=== PATIENT | female | born 1980 | race Caucasian/White ===

== ENCOUNTER 2017-09-25 10:59 | Day surgery (SDC) | payer OTHER ==
[~2017-09-25] VITALS: Ht 154.9 cm; Wt 89.4 kg
[~2017-09-25 10:59] MED LIST: ASPIR-TRIN325 M1 PO; CAMILA0.35 MG PO; ENDOCET 5-3251 EACH PO; MOBIC7.5 MG PO; MOTRIN400 MG PO; Motrin PO; NON-ASPIRIN PA500 M1 PO; PRILOSEC20 MG PO; PROZAC20 MG PO; TOPAMAX50 MG PO
[2017-09-25 11:48] VITALS: BP 107/69
[2017-09-25 15:40] VITALS: BP 112/65
[2017-09-25 16:38] VITALS: BP 102/61
== END 2017-09-25 16:39 | disposition home or self-care (01) ==
LOC: SDC 10:59
PROVIDERS: Podiatrist Foot & Ankle Surgery
PROC: 0KNW0ZZ Release Left Foot Muscle, Open Approach (ICD-10-PCS; principal; 2017-09-25)
DX: M72.2 Plantar fascial fibromatosis (principal); S86.312A Strain of muscle(s) and tendon(s) of peroneal muscle group at lower leg level, left leg, initial encounter; K21.9 Gastro-esophageal reflux disease without esophagitis; Z68.36 Body mass index [BMI] 36.0-36.9, adult; Z87.891 Personal history of nicotine dependence
CPT/HCPCS: 81025; J0131; J0690; J1100; J1885; J2250; J2405; J2765; J3010; S0020